=== PATIENT | male | born 1955 | race Caucasian/White ===

== ENCOUNTER → 2018-03-17 | Outpatient (CLI) | payer BC ==
--- NOTE | 2018-03-17 16:17 | CONS ---
CONSULTATION DATE OF SERVICE: 03/17/2018 This patient is a 63-year-old gentleman who has been evaluated in the sleep center for obstructive sleep apnea-hypopnea syndrome. HISTORY OF PRESENT ILLNESS/SLEEP-WAKE EVALUATION: Patient was diagnosed with sleep apnea about 12 years ago. Since that time he has been on treatment with CPAP. Last sleep study was done about 7 years ago. The patient continues to use his CPAP equipment every night, but he still has some awakenings from sleep and feels tiredness and sleepiness during the day. He has a positive history of awakenings with gasping for air while on CPAP machine. His sleep schedule on weekdays is from about 10 or 11 p.m. until 5 or 6 a.m., and on weekends about the same. No problems with falling asleep. Usually he does not watch TV in the bedroom. He feels sleepy sometimes during the day, but there is no time for naps. He wakes up tired, has difficulty sometimes paying attention. He has problems with memory, concentration. [place] Sleepiness Scale is 6. I checked patient's CPAP unit. CPAP pressure is 9 cm of water. Usage is 100% of the time for more than 4 hours; average 7.5 hours. The machine does not have any information about breathing. PAST MEDICAL HISTORY: 1. Hyperlipidemia. 2. Nasal breathing problems. 3. Shoulder problems. 4. Knee problems. 5. He had an episode of chest pain and results of cardiac cath were negative for coronary artery disease, although results of stress test at that time were positive. PAST SURGICAL HISTORY: 1. Bilateral surgery for rotator cuff problems. 2. Total right knee replacement. MEDICATIONS: 1. Crestor. 2. Coenzyme-Q. 3. Vitamin D. 4. Propecia nasal spray. SOCIAL HISTORY: Negative for smoking. Alcohol consumption occasional. FAMILY HISTORY: Heart problems, hyperlipidemia, brain aneurysm, sleep apnea, snoring, thyroid problems, acid reflux . REVIEW OF SYSTEMS: Sometimes awakenings from sleep. Tiredness and sleepiness during the day, even while using his CPAP. PHYSICAL EXAMINATION: GENERAL A pleasant gentleman without distress. VITAL SIGNS: BP 97/58, HR 64, RR 16, height 5 feet 9 inches, weight 192.4, body mass index 28.3, temperature 97.8, oxygen saturation at room air 95%. HEENT: PERRLA, EOMI. Evaluation of oropharynx showed tongue protrudes midline; extremely low position of soft palate. NECK: Supple. No JVD. Thyroid is not palpable. Neck measures 16-1/2 inches in circumference. LUNGS: Clear to percussion and to auscultation. Good air exchange. No wheezing or rhonchi. HEART: S1, S2 regular. No murmurs, gallops or rubs. ABDOMEN: Soft and nontender. Bowel sounds are present. No organomegaly appreciated. EXTREMITIES : No clubbing or cyanosis. YARDER ENGINEER: Awake, alert, and oriented X3. Cranial nerves 2 to 7 intact. There is no fasciculation or atrophy noted. No focal deficits observed. IMPRESSION: 1. Obstructive sleep apnea-hypopnea syndrome for about 12 years. Patient continues to use CPAP equipment every night for the whole night 100% of the time but still has episodes of awakenings with gasping for air and sleepiness during the day. Extremely low position of soft palate. Obstructive sleep apnea-hypopnea syndrome. 2. Hyperlipidemia. 3. Some restriction of nasal breathing. 4. History of episode of chest pain with positive results of stress test but negative results of cardiac catheterization. 5. Status post bilateral surgery for rotator cuff problems. 6. Status post right knee total replacement. PLAN: 1. Repeat CPAP titration for reevaluation of effective CPAP pressure at the present time, and after that patient should get a new CPAP unit. 2. Sleep hygiene with regular time in bed for 8 hours. 3. No driving if feeling any sleepiness. 4. Prescription for all necessary CPAP supplies, including mask, tube, filters. Thank you very much for referring this patient for consultation. Sincerely, Jermaine Celis MD, PhD, FAASM Diplomat of [employer] [facility] [place] MMODL / IJN: [id number] /
== END ==
LOC: SLEEP 14:15
PROVIDERS: ATTEND Internal Medicine
DX: G47.33 Obstructive sleep apnea (adult) (pediatric) (principal); E78.5 Hyperlipidemia, unspecified; J98.8 Other specified respiratory disorders; Z98.890 Other specified postprocedural states; Z96.651 Presence of right artificial knee joint; Z99.89 Dependence on other enabling machines and devices; Z79.899 Other long term (current) drug therapy
CPT/HCPCS: 99211

== ENCOUNTER → 2018-06-09 | Outpatient (CLI) | payer BC ==
--- NOTE | 2018-06-09 16:47 | PN ---
PROGRESS NOTE DATE OF SERVICE: 06/09/2018 63-year-old gentleman who has been followed in Sleep Center for treatment of obstructive sleep apnea-hypopnea syndrome. Recently patient had CPAP titration and received new CPAP unit. The patient is able to use his CPAP equipment every night for the whole night without significant problems. He likes his machine. Sleeps well. No snoring with CPAP. [place] Sleepiness Scale today is 10. I discussed results of the sleep studies with the patient in details with the pressure 6 cm of water his breathing was fully normalized during titration. I checked patient's CPAP unit. CPAP pressure is 6 cm of water. Usage is 100% of the nights, 30 out of 30 nights for more than 4 hours. Average usage is 7.7 hours, which is normal time. Leak is 12 L/minute, which is acceptable. Apnea-hypopnea index for the last month only 2.2, which is absolutely normal range. MEDICATIONS: Crestor, vitamin D, nasal spray, Co-Enzyme Q. PHYSICAL EXAM: Patient in no distress. BP 115/72, HR 60, RR 16, weight 198.4, temperature 97.8. Oropharynx moderately low position of soft palate. Neck Supple, no JVD. Thyroid is not palpable. LUNGS Clear to percussion and to auscultation. Good air exchange. No wheezing or rhonchi. HEART S1, S2 regular. No murmurs, gallops, or rubs. ABDOMEN Soft and nontender. Bowel sounds are present. No organomegaly appreciated. EXTREMITIES No clubbing or cyanosis. FINISHED GOODS INSPECTOR Awake, alert, and oriented X3. Cranial nerves 2 to 7 intact. There is no fasciculation or atrophy. noted. No focal deficits observed. IMPRESSION: 1. Obstructive sleep apnea-hypopnea syndrome. Patient demonstrated 100% compliance with treatment benefitting from treatment. 2. Hyperlipidemia. 3. History of episodes of chest pain in the past. No recent episodes. 4. Status post bilateral surgery for rotator cuff problems. 5. Status post total right knee replacement. PLAN: 1. Patient will continue to use CPAP equipment every night for the whole night. 2. Watching weight. 3. Sleep hygiene with regular time in bed for at least 8 hours. 4. No driving if feeling sleepiness. 5. We will maintain a prescription for all necessary CPAP supplies including mask, tube, filters. Thank you very much for allowing me to participate in management of your patient. Sincerely, Jermaine Stefadu, MD, PhD, FAASM Diplomat of [employer] [facility] [place] MMKALIA / BHAVYA: [id number] /
== END ==
LOC: SLEEP 15:24
PROVIDERS: ATTEND Internal Medicine
DX: G47.33 Obstructive sleep apnea (adult) (pediatric) (principal); E78.5 Hyperlipidemia, unspecified; R07.9 Chest pain, unspecified; Z98.890 Other specified postprocedural states; Z96.651 Presence of right artificial knee joint; Z99.89 Dependence on other enabling machines and devices; Z79.899 Other long term (current) drug therapy